=== PATIENT | male | born 1990 | race Caucasian/White ===

== ENCOUNTER → 2016-04-16 | Day surgery (SDC) | payer SELFPAY ==
[2016-04-03 08:48] VITALS: Ht 182.9 cm; Wt 84.1 kg
[~2016-04-16] VITALS: Ht 182.9 cm; Wt 84.1 kg
[~2016-04-16] MED LIST: PRLSR20 PO
== END | disposition home or self-care (01) ==
LOC: C.PAT 11:19 → EDSTATUS 14:45
PROVIDERS: ATTEND Physical Medicine & Rehabilitation
DX: M54.16 Radiculopathy, lumbar region (principal)

== ENCOUNTER → 2016-04-24 | Outpatient (CLI) | payer OTHER ==
--- NOTE | 2016-04-24 10:59 | DIAGNOSTIC IMAGING REPORT ---
MRI OF THE LUMBAR SPINE WITHOUT IV CONTRAST CLINICAL HISTORY: Chronic low back pain. COMPARISON STUDY: Abdominal CT dated 04/14/2013. TECHNIQUE: MRI of the lumbar spine is performed utilizing various T1 and T2-weighted sequences in the axial and sagittal planes. IV contrast was not administered for this examination. FINDINGS: Lumbar spine: Vertebral body height and alignment are maintained throughout the lumbar spine. Normal marrow signal intensity is preserved throughout the visualized bony structures. No destructive bony lesion is seen. The transverse and spinous processes appear intact. There is no evidence of spondylolysis. Small anterior osteophytes are seen at L5-S1. Intervertebral discs: There is degenerative disc desiccation seen at L4-L5 and L5-S1. No significant loss of height is seen. The remaining discs are normal in height and signal intensity. Spinal cord: The visualized spinal cord is normal in morphology and signal intensity. The conus medullaris terminates at the level of L1. The nerve roots of the cauda equina are normal in morphology. L1-L2: Unremarkable. L2-L3: Unremarkable. L3-L4: The central canal and neural foramina are widely patent. Minimal facet arthropathy is of no consequence. L4-L5: There is minimal posterior disc bulge with annular fissure. There is no significant acquired compromise of the central canal. The neural foramina are patent. Mild facet arthropathy is of no consequence. L5-S1: There is a posterior disc bulge with annular fissure. No significant acquired compromise of the central canal is identified. There is mild bilateral subarticular stenosis, left greater than right. This may abut the exiting bilateral L5 nerve roots. Facet arthropathy causes minimal, right greater than left, neural foraminal stenosis. Soft tissues: The paraspinous soft tissues are within normal limits. The partially imaged retroperitoneal structures are grossly unremarkable but incompletely evaluated. Sacrum: The visualized sacrum is normal in morphology and signal intensity. IMPRESSION: 1. There is no disc herniation or central canal stenosis. 2. Degenerative disc disease at L4-L5 and L5-S1 as detailed above. See discussion for detailed [id number] analysis. 3. No destructive bony process is identified. Dictated: 04/24/2016 10:33 AM Transcribed: 04/24/2016 10:58 AM [email or web address] Electronically signed by: Sim Rosales M.D. 04/24/2016 11:02 AM Dictated Date/Time: 04/24/2016 10:33 AM
== END | disposition home or self-care (01) ==
LOC: C.MRI 07:19
PROVIDERS: ATTEND Physical Medicine & Rehabilitation
DX: M51.26 Other intervertebral disc displacement, lumbar region (principal); M54.16 Radiculopathy, lumbar region